=== PATIENT | female | born 1995 | race Caucasian/White ===

== ENCOUNTER 2018-11-02 15:13 | Outpatient (CLI) | payer OTHER ==
[~2018-11-02 15:13] MED LIST: MIRALAX12 EA PO; MUCINEX D1 TAB.SR1 PO; NASONEX17 GM NS
== END 2018-11-02 15:20 | disposition home or self-care (01) ==
LOC: LAB 15:13
DX: Z11.3 Encounter for screening for infections with a predominantly sexual mode of transmission (principal)

== ENCOUNTER 2019-01-24 17:08 | Emergency (ER) | payer OTHER ==
[~2019-01-24] VITALS: Ht 162.6 cm; Wt 56.2 kg
[2019-01-24] MEDS ORDERED: AZO STANDARD97.5 MG (18:18)
== END 2019-01-24 21:24 | disposition home or self-care (01) ==
LOC: ER 17:08
DX: R30.0 Dysuria (principal); N39.0 Urinary tract infection, site not specified

== ENCOUNTER 2019-02-07 16:48 | Outpatient (CLI) | payer OTHER ==
[~2019-02-07 16:48] MED LIST changes: +AZO STANDARD97.5 MG
== END 2019-02-07 18:00 | disposition home or self-care (01) ==
LOC: LAB 16:48
DX: N39.0 Urinary tract infection, site not specified (principal)

== ENCOUNTER 2019-02-08 06:46 | Outpatient (CLI) | payer OTHER | END 2019-02-08 18:34 | disposition home or self-care (01) | LOC: LAB 06:46 | DX: N39.0 Urinary tract infection, site not specified (principal); Z13.1 Encounter for screening for diabetes mellitus; E03.8 Other specified hypothyroidism; E55.9 Vitamin D deficiency, unspecified; E78.2 Mixed hyperlipidemia ==

== ENCOUNTER 2019-07-28 23:11 | Emergency (ER) | payer OTHER ==
[~2019-07-28] VITALS: Ht 162.6 cm; Wt 56.2 kg
[2019-07-29] MEDS ORDERED: URIN D.S. TABL1 EACH PO (03:08)
[2019-07-29] MEDS ORDERED: BACTRIM DS TAB1 EACH PO (03:08)
== END 2019-07-29 04:32 | disposition home or self-care (01) ==
LOC: ER 23:11
DX: N39.0 Urinary tract infection, site not specified (principal); R30.0 Dysuria; R31.0 Gross hematuria